=== PATIENT | male | born 1985 | race Asian ===

== ENCOUNTER 2016-10-17 12:28 | Emergency (ER) | payer SELFPAY ==
[~2016-10-17] VITALS: Ht 172.7 cm; Wt 66.6 kg
--- NOTE | 2016-10-17 12:44 | NUR ---
HANDOFF COMMUNICATION To Tanna SHEEHAN and Providers
[2016-10-17] MEDS ORDERED: DIPH25CA6 PO (12:48)
--- NOTE | 2016-10-17 12:54 | ERPDOC ---
Departure Disposition Decision Date: October 17, 2016 Disposition Decision Time: 15:47 (MARTIN PARKER APRN) Disposition: 01 DISCHARGED HOME, SELF-CARE Impression Impression (MARTIN PARKER APRN) Impression: Primary Impression: Contact dermatitis Contact dermatitis type: unspecified Severity: Moderate (MARTIN PARKER APRN) Condition: Improved Seen By: Mid-level only (MARTIN PARKER APRN) Patient Instructions: Contact Dermatitis (ED) Problems/Meds/Labs Reviewed?: Yes Medications reviewed and manag: Yes (MARTIN PARKER APRN) Additional Instructions: Your symptoms and exam findings are consistent with a contact dermatitis. You need to find out if there as been any change in detergents or chemical you use at work. You need to take Ranidine 150mg twice daily for 7 days. You may take loratadine 10mg daily for 7 days. Follow with your PCP if symptoms are not improving or worsening. Follow up care ordered?: Yes Mental Status: Alert, Oriented (MARTIN PARKER APRN) HPI - Skin General General Chief Complaint: Allergic Reaction Stated Complaint: ALLERGIC REACTION Time Seen by Provider: 12:53 Source: patient, yard stocker (Mike) Exam Limitations: language barrier (MARTIN PARKER APRN) Time Seen by Provider: 12:53 (OCTOBERMAX DO) HPI - Skin General Initial Comments 31 YO M presents to ED with "itchy" red rash that started 3 days ago. Patient says that rash started out on his eyelids then his face, has spread to his neck and bilateral arms. Patient denies fever, chills, new soaps/detergents/ lotions, new medications, new foods, SOA or swelling of mucus membranes or lips. Patient took Benadryl 25mg prior to arrival. Location: face, hands, extremities Associated Symptoms: rash, DENIES: fever (MARTIN PARKER APRN) Allergies: Coded Allergies: No Known Allergies (Unverified , 10/19/16) Past History Past Medical History Pt denies signifigant PMH (MARTIN PARKER APRN) Surgical History Denies Surgeries (MARTIN PARKER APRN) Family History Family PMH: FOUND: other (noncontributory) (MARTIN PARKER APRN) Social History Current Occupational Status: employed (MARTIN PARKER APRN) Review of Systems Constitutional Constitutional: DENIES: chills, dizziness, fever, weakness (PARKER,MARTIN A EARTH MOVING TECHNICIAN) Eyes General: DENIES: erythema, exudate Lids/Accessories: DENIES: erythema, swelling (PARKER,MARTIN A EARTH MOVING TECHNICIAN) ENMT Ears: DENIES: pain Sinuses: DENIES: congestion, rhinorrhea Mouth/Throat: DENIES: sore throat (PARKER,MARTIN A EARTH MOVING TECHNICIAN) Cardiovascular Cardiac: DENIES: chest pain, murmur Rhythm/Rate: DENIES: palpitations (PARKER,MARTIN A EARTH MOVING TECHNICIAN) Pulmonary Respiratory: DENIES: cough, dyspnea (PARKER,MARTIN A EARTH MOVING TECHNICIAN) GI Upper Abdomen: DENIES: nausea, pain, vomiting Lower Abdomen: DENIES: diarrhea, pain (PARKER,MARTIN A EARTH MOVING TECHNICIAN) General: DENIES: dysuria, pain (PARKER,MARTIN A EARTH MOVING TECHNICIAN) Musculoskeletal General: DENIES: joint pain, pain, tenderness (PARKER,MARTIN A EARTH MOVING TECHNICIAN) Integumentary Skin: itching, rash, see HPI (PARKER,MARTIN A EARTH MOVING TECHNICIAN) Neurological General: DENIES: ataxia, change in strength, numbness, paralysis/paresis, weakness (PARKER,MARTIN A EARTH MOVING TECHNICIAN) Psychiatric Psychiatric: DENIES: anxiety, depression, nervousness (PARKER,MARTIN A EARTH MOVING TECHNICIAN) Physical Exam General General Nourishment: well nourished, well developed, adult General Body Habitus: well groomed (PARKER,MARTIN A EARTH MOVING TECHNICIAN) Vitals and Pain Weight: Kilograms: 66.600 Height (feet): 5 Height (inches): 8.00 Triage Pain Scale: (PARKER,MARTIN A EARTH MOVING TECHNICIAN) Eyes (brief) Eyes Brief: found: EOMI (PARKER,MARTIN A EARTH MOVING TECHNICIAN) ENMT (brief) ENMT Brief: NOT FOUND: mucosa moist, nasal exudate, nasal swelling, pharnyx erythema (PARKER,MARTIN A EARTH MOVING TECHNICIAN) Neck (brief) Neck: FOUND: trachea midline, NOT FOUND: adenopathy, tenderness, thyromegaly ( PARKER,MARTIN A EARTH MOVING TECHNICIAN) Respiratory (brief) Respiratory: FOUND: clear all ayala, equal bilaterally, symmetrical (PARKER, MARTIN A EARTH MOVING TECHNICIAN) Cardiovascular (brief) Cardiac: FOUND: regular rate, regular rhythm (PARKER,MARTIN A EARTH MOVING TECHNICIAN) Musculoskeletal (brief) Musculoskeletal Brief: NOT FOUND: deformity, loss of motion (MARTIN PARKER EARTH MOVING TECHNICIAN) Integumentary General: FOUND: dry, warm Rash: FOUND: other (see below) Comments Confluent, diffuse erythematous papules on face, neck, bilateral hands, fingers , forearms and distal arms with excoriated areas on face and forearms. (MARTIN PARKER EARTH MOVING TECHNICIAN) Neurologic (brief) Neurological Brief: FOUND: motor-no gross deficits, sensory-no gross deficits ( MARTIN PARKER APRN) Psychiatric (brief) Psychiatric Brief: FOUND: alert, normal affect, oriented (MARTIN PARKER EARTH MOVING TECHNICIAN ) Differential Diagnoses Considering: Cellulitis, Contact Dermatitis, Hives/Urticaria, Viral Exanthem (MARTIN PARKER APRN) Progress Results/Orders Orders Procedure Category Date Status Time Methylprednisolone PHA 10/17/16 Complete Sod Succ (Solu-Medrol 13:15 Iv Lock (Ed Only) EDM 10/17/16 Transmitted 13:03 Normal Saline (Ns) PHA 10/17/16 Complete W/Ranitidine 14:15 Cbc W/Auto LAB 10/17/16 Complete Diff-Reflex Manual Bmp - Basic Metabolic LAB 10/17/16 Complete Panel Famotidine (Pepcid 20 PHA 10/17/16 Complete Mg Inj.) 15:00 (OCTOBER,MAX M DO) Lab Results Laboratory Tests Test 10/17/16 15:01 White Blood Count 5.0T/MM3 Red Blood Count 5.82M/MM3 Hemoglobin 16.9GM/DL Hematocrit 49.7% Mean Corpuscular Volume 85.4UM3 Mean Corpuscular Hemoglobin 29.0UUG Mean Corpuscular Hemoglobin Concent 34.0GM/DL RDW Standard Deviation 37.5FL Platelet Count 232T/MM3 Mean Platelet Volume 9.7UM3 Immature Granulocyte % (Auto) 0.0% Neutrophils (%) (Auto) 64.6% Lymphocytes (%) (Auto) 21.4% Monocytes (%) (Auto) 4.2% Eosinophils (%) (Auto) 9.4% Basophils (%) (Auto) 0.4% Absolute Immature Granulocyte (auto 0.00T/MM3 Absolute Neutrophils (auto) 3.2T/MM3 Absolute Lymphocytes (auto) 1.1T/MM3 Absolute Monocytes (auto) 0.2T/MM3 Absolute Eosinophils (auto) 0.5T/MM3 Absolute Basophils (auto) 0.0T/MM3 Turbidity < 20 Sodium Level 144MEQ/L Potassium Level 4.0MEQ/L Chloride Level 103MEQ/L Carbon Dioxide Level 28MEQ/L Anion Gap 13MEQ/L Blood Urea Nitrogen 9.0MG/DL Creatinine 1.0MG/DL Glomerular Filtration Rate Calc 88 BUN/Creatinine Ratio 9RATIO Glucose Level 125MG/DL Calculated Osmolality 277MOSM/KG Calcium Level 9.7MG/DL Icterus Index < 2 Chemistry Specimen Hemolysis < 15 ( Javier ) Medications Current ED Medications Methylprednisolone Sodium Succinate 125 mg 125 mg O ONCE IV Last administered on 10/17/16 13:42; Start 10/17/16 at 13:15; Stop 10/17/16 at 13:16; Status DC Ranitidine HCl 150 mg/Sodium Chloride 256 ml @ 10.7 mls/hr [id number] IV ; Start 10/17/16 at 14:15; Stop 10/17/16 at 14:59; Status DC Famotidine/Sodium Chloride (PEPCID 20 mg INJ./NS) 52 ml @ 100 mls/hr O ONCE IV Last administered on 10/17/16 15:02; Start 10/17/16 at 15:00; Stop 10/17/16 at 15:31; Status DC (OCTOBER,MAX Herrera ) Progress Progress Patient has had no change/improve of rash/symptoms after solu-medrol IV for 45 minutes. Patient has marked improvement of rash (decreased, rash and redness) after pepcid IV. Patient says his rash is no longer itching. CBC unremarkable I discussed patient's HPI, PMH, CBC, exam findings and response to tx. with Dr. Ma. Dr. Ma did not feel patient needed Rx. for prednisone since Solu-Medrol should last 5 days. Rash is consistent with a contact dermatitis (rash only on exposed skin, no under clothing) which was discussed with patient and possible causes in detail. I discussed treatment plan, use of medication, close follow up with PCP and return precautions with patient who verbalized understanding. (MARTIN PARKER APRN) MARTIN PARKER APRN October 17, 2016 12:54 OCTOBERMAX DO October 22, 2016 07:41
--- NOTE | 2016-10-17 12:54 | NUR ---
PROVIDER Josep PARKER APRN AT BEDSIDE FOR EXAM.
--- NOTE | 2016-10-17 14:05 | NUR ---
STATUS REDNESS APPEARS TO BE IMPROVING AFTER SOLU MEDROL ADM. PT POINTS TO ARMS, AND REPORTS THAT THE RASH IS STILL PRESENT. THIS RN ATTEMPTED TO EXPLAIN TO PT RASH IS NOT GOING TO IMMEDIATELY GO AWAY. REPORTS ITCHINESS CONTINUED.
[2016-10-17] MEDS ORDERED: RANITIDINE IV SCH (14:15)
[2016-10-17] MEDS ORDERED: NORMAL SALINE IV SCH (14:15)
--- NOTE | 2016-10-17 14:42 | NUR ---
MEDICATION CALLED FOR RANITIDINE FROM PHARMACY.
[2016-10-17] MEDS ORDERED: FAMOTIDINE 20 MG in NORMAL SALINE 50 ML IV ONE (15:00)
[2016-10-17 15:07] LABS: BASOPHILS % (AUTO) 0.4 % (0-2); EOSINOPHILS # (AUTO) 0.5 T/MM3 (0-0.5); EOSINOPHILS % (AUTO) 9.4 % (0-4); HCT - HEMATOCRIT 49.7 % (41-53); HGB - HEMOGLOBIN 16.9 GM/DL (13.5-17.5); LYMPHOCYTES # (AUTO) 1.1 T/MM3 (1-4.8); LYMPHOCYTES % (AUTO) 21.4 % (23-45); MEAN CORPUSCULAR VOLUME 85.4 UM3 (80-100); MEAN PLATELET VOLUME 9.7 UM3 (9.4-12.4); MONOCYTES # (AUTO) 0.2 T/MM3 (0-0.8); MONOCYTES % (AUTO) 4.2 % (0-9.0); NEUTROPHILS #(AUTO)-ABSOLUTE 3.2 T/MM3 (1.8-7.7); NEUTROPHILS % (AUTO) 64.6 % (33-66); RED BLOOD COUNT 5.82 M/MM3 (4.50-5.90)
[2016-10-17 15:18] LABS: ANION GAP 13 MEQ/L (5-15); BUN/CREATININE RATIO 9 RATIO (6-26); CALCIUM 9.7 MG/DL (8.4-10.2); CHLORIDE 103 MEQ/L (98-107); CO2 - CARBON DIOXIDE 28 MEQ/L (22-30); GLOMERULAR FILTRATION RATE 88; GLUCOSE 125 MG/DL (75-110); SODIUM 144 MEQ/L (134-144)
--- NOTE | 2016-10-17 15:32 | NUR ---
STATUS PT RESTING COMFORTABLY IN CART. DENIES NEEDS AT THIS TIME. PT STATES "IT FEELS COOLER NOW." REDNESS TO RASH IMPROVED.
--- NOTE | 2016-10-17 16:06 | NUR ---
PROVIDER Josep PARKER APRN AT BEDSIDE TO SPEAK WITH PT.
[2016-10-17 17:02] VITALS: BP 127/77; PULSE 82; RESP 18; TEMP 98.9; O2SAT 99
--- NOTE | 2016-10-17 17:02 | NUR ---
DISCHARGE WRITTEN INSTRUCTIONS REVIEWED AND SENT WITH PT. PT VERBALIZES UNDERSTANDING OF DI, QUESTIONS REGARDING OTC MEDICATIONS ANSWERED. DIFFUSE PAPULAR RASH TO BILAT UPPER EXTREM, NECK, AND FACE STILL PRESENT; HOWEVER, HAS IMPROVED. REDNESS DECREASED, AND PT REPORTS NOT ITCHY. PT AMBULATES OUT OF ER WITH STEADY GAIT AT THIS TIME.
== END 2016-10-17 17:02 | disposition home or self-care (01) ==
LOC: ED 12:28
DX: L25.9 Unspecified contact dermatitis, unspecified cause (principal)
CPT/HCPCS: 36415; 80048; 85025

== ENCOUNTER 2016-10-19 14:23 | Emergency (ER) | payer SELFPAY ==
[~2016-10-19] VITALS: Ht 172.7 cm; Wt 66.0 kg
[~2016-10-19 14:23] MED LIST: DIPH25CA6 PO
[2016-10-19 14:25] VITALS: Ht 172.7 cm; Wt 66.0 kg
--- OUTSIDE RECORDS SUMMARY | 2016-10-19 14:27 | XMS REPORT | Continuity of Care Document ---
Author Author [facility] Organization [facility] Address Unknown Phone Unavailable Support Name Relationship Address Phone MAX PAUL DO Caregiver [address] [address] Unavailable Insurance Providers Guarantor Dustin Rangel Address [address] [place] [address] Email DENIED 16 Payer Self Pay Subscriber's Name Dustin Rangel Relationship 18 Self Advance Directives Directive Response Recorded Date/Time Advanced Directives Type None 10/17/16 12:45pm Chief Complaint and Reason for Visit Chief Complaint Allergic Reaction Reason for Visit Contact dermatitis Problems Active Problems Medical Problem Onset Date Status Contact dermatitis Unknown Acute Rash and nonspecific skin eruption Unknown Acute Medications Current Home Medications Medication Dose Units Route Directions Days Qty Instructions Start Date Diphenhydramine Hcl 25 Mg Capsule 1 Cap Oral Every 4 Hours Social History Social History Problem Response Recorded Date/Time Onset Date Status Chewing Tobacco Status No 10/17/2016 1:20pm Not Applicable Not Applicable Hx Substance Use No 10/17/2016 1:20pm Not Applicable Not Applicable Hx Alcohol Use No 10/17/2016 1:20pm Not Applicable Not Applicable Query Response Start Date Stop Date Smoking Status Never smoker Hospital Discharge Instructions No hospital discharge instructions. Plan of Care Discharge Date 10/17/16 5:02pm Disposition 01 DISCHARGED HOME, SELF-CARE Condition at Discharge Improved Instructions/Education Provided Contact Dermatitis (ED) Prescriptions See Medication Section Additional Instructions/Education Your symptoms and exam findings are consistent with a contact dermatitis. You need to find out if there as been any change in detergents or chemical you use at work. You need to take Ranidine 150mg twice daily for 7 days. You may take loratadine 10mg daily for 7 days. Follow with your PCP if symptoms are not improving or worsening. Care Plan and Goals Physician Care Plan Problem: Contact Dermatitis Goal: Follow up with primary care provider Instructions: Take medications and follow care plan as discussed/written Functional Status No functional status results. Allergies, Adverse Reactions, Alerts No known allergies. Immunizations No immunization records. Vital Signs Acute Vital Signs Vital Response Date/Time Temperature (Fahrenheit) 98.9 deg F (96.8 - 99.1) 10/17/2016 5:02pm Temperature (Calculated Celsius) 37.45121 degrees C (36.0 - 37.3) 10/17/2016 5:02pm Pulse Rate (adult) 82 bpm (60 - 100) 10/17/2016 5:02pm Respiratory Rate 18 breaths/min (10 - 20) 10/17/2016 5:02pm O2 Sat by Pulse Oximetry 99 % (90 - 100) 10/17/2016 5:02pm Blood Pressure 127/77 mm Hg 10/17/2016 5:02pm Height (Feet) 5 feet 10/17/2016 12:36pm Height (Inches) 8.00 inches 10/17/2016 12:36pm Weight (Kilograms) 66.600 kg 10/17/2016 12:36pm Height 5 ft 8 in 10/17/2016 12:36pm Weight 146.83 lb 10/17/2016 12:36pm Body Mass Index 22.0 kg/m^2 10/17/2016 12:36pm Results Laboratory Results Test Name Result Units Flags Reference Collection Date/Time Result Date/ Time Comments White Blood Count 5.0 T/MM3 4.5-11.0 10/17/2016 3:01pm 10/17/2016 3: 07pm Red Blood Count 5.82 M/MM3 4.50-5.90 10/17/2016 3:01pm 10/17/2016 3: 07pm Hemoglobin 16.9 GM/DL 13.5-17.5 10/17/2016 3:01pm 10/17/2016 3:07pm Hematocrit 49.7 % 41-53 10/17/2016 3:01pm 10/17/2016 3:07pm Mean Corpuscular Volume 85.4 UM3 80-100 10/17/2016 3:01pm 10/17/2016 3: 07pm Mean Corpuscular Hemoglobin 29.0 UUG 26-34 10/17/2016 3:01pm 2016 3:07pm Mean Corpuscular Hemoglobin Concent 34.0 GM/DL 31-37 10/17/2016 3:01pm 10/17/2016 3:07pm RDW Standard Deviation 37.5 FL 36.9-50.2 10/17/2016 3:01pm 10/17/2016 3 :07pm Platelet Count 232 T/MM3 130-400 10/17/2016 3:01pm 10/17/2016 3:07pm Mean Platelet Volume 9.7 UM3 9.4-12.4 10/17/2016 3:01pm 10/17/2016 3: 07pm Neutrophils (%) (Auto) 64.6 % 33-66 10/17/2016 3:01pm 10/17/2016 3: 07pm Lymphocytes (%) (Auto) 21.4 % L 23-45 10/17/2016 3:01pm 10/17/2016 3: 07pm Monocytes (%) (Auto) 4.2 % 0-9.0 10/17/2016 3:01pm 10/17/2016 3:07pm Eosinophils (%) (Auto) 9.4 % H 0-4 10/17/2016 3:01pm 10/17/2016 3:07pm Basophils (%) (Auto) 0.4 % 0-2 10/17/2016 3:01pm 10/17/2016 3:07pm Immature Granulocyte % (Auto) 0.0 % 0.0-0.5 10/17/2016 3:01pm 2016 3:07pm Absolute Neutrophils (auto) 3.2 T/MM3 1.8-7.7 10/17/2016 3:01pm 2016 3:07pm Absolute Lymphocytes (auto) 1.1 T/MM3 1-4.8 10/17/2016 3:01pm 2016 3:07pm Absolute Monocytes (auto) 0.2 T/MM3 0-0.8 10/17/2016 3:01pm 10/17/2016 3:07pm Absolute Eosinophils (auto) 0.5 T/MM3 0-0.5 10/17/2016 3:01pm 2016 3:07pm Absolute Basophils (auto) 0.0 T/MM3 0-0.2 10/17/2016 3:01pm 10/17/2016 3:07pm Absolute Immature Granulocyte (auto 0.00 T/MM3 0.00-0.03 10/17/2016 3: 01pm 10/17/2016 3:07pm Icterus Index < 2 0-7 10/17/2016 3:01pm 10/17/2016 3:18pm Chemistry Specimen Hemolysis < 15 0-25 10/17/2016 3:01pm 10/17/2016 3 :18pm 0-25: Specimen Exhibited No Hemolysis. Turbidity < 20 0-20 10/17/2016 3:01pm 10/17/2016 3:18pm Sodium Level 144 MEQ/L 134-144 10/17/2016 3:01pm 10/17/2016 3:18pm Potassium Level 4.0 MEQ/L 3.6-5 10/17/2016 3:01pm 10/17/2016 3:18pm Chloride Level 103 MEQ/L 98-107 10/17/2016 3:01pm 10/17/2016 3:18pm Carbon Dioxide Level 28 MEQ/L 22-30 10/17/2016 3:01pm 10/17/2016 3: 18pm Anion Gap 13 MEQ/L 5-15 10/17/2016 3:01pm 10/17/2016 3:18pm Blood Urea Nitrogen 9.0 MG/DL 9-20 10/17/2016 3:01pm 10/17/2016 3:18pm Creatinine 1.0 MG/DL 0.8-1.5 10/17/2016 3:01pm 10/17/2016 3:18pm BUN/Creatinine Ratio 9 RATIO 6-26 10/17/2016 3:01pm 10/17/2016 3:18pm Glomerular Filtration Rate Calc 88 10/17/2016 3:01pm 10/17/2016 3: 18pm Glucose Level 125 MG/DL H 75-110 10/17/2016 3:01pm 10/17/2016 3:18pm Calculated Osmolality 277 MOSM/KG 261-280 10/17/2016 3:01pm 10/17/2016 3:18pm Calcium Level 9.7 MG/DL 8.4-10.2 10/17/2016 3:01pm 10/17/2016 3:18pm Procedures No known history of procedures. Encounters Encounter Location Arrival/Admit Date Discharge/Depart Date Attending Provider Departed Emergency Room [facility] 10/17/16 12:28pm 10/17/16 5: 02pm MAX PAUL DO Recent Diagnosis
--- NOTE | 2016-10-19 14:41 | ERPDOC ---
Departure Disposition Decision Date: October 19, 2016 Disposition Decision Time: 16:10 Disposition: 01 DISCHARGED HOME, SELF-CARE Impression Impression Impression: Primary Impression: Contact dermatitis Contact dermatitis type: irritant Contact dermatitis trigger: unspecified trigger Qualified Codes: L24.9 - Irritant contact dermatitis, unspecified cause Severity: Moderate Condition: Stable Seen By: Physician only Referrals: [facility] Patient Instructions: Acute Rash (ED) Problems/Meds/Labs Reviewed?: Yes Medications reviewed and manag: Yes Additional Instructions: Stop diphenhydramine (Benadryl) and stop loratadine. Take the Vistaril 4 times a day this will replace the above medications. Continue to take the ranitidine as directed Take the prednisone taper as directed. You have been provided a small amount of tramadol for pain, you may use that as needed for pain. You need to establish yourself with a primary medical physician for follow-up if this is not improving Follow up care ordered?: Yes Mental Status: Alert, Oriented Scripts Tramadol HCl (Tramadol HCl) 50 Mg Tablet 1-2 TAB PO Q6H Y for PAIN, #20 TAB Prov: CATHERINE MOTA MD 10/19/16 Hydroxyzine Pamoate (Vistaril) 50 Mg Capsule 1 CAP PO QID for 5 Days, #20 CAP Prov: CATHERINE MOTA MD 10/19/16 Prednisone (Prednisone) 20 Mg Tablet 0 PO as directed, #33 TAB Take 3 tablets once a day for 5 days, then Take 2 tablets once a day for 5 days, then Take 1 tablet once a day for 5 days, then Take 1/2 tablet once a day for 6 days, then Stop Prov: CATHERINE MOTA MD 10/19/16 HPI - Chest Pain General Chief Complaint: Allergic Reaction Stated Complaint: ALLERGIC REACTION Time Seen by Provider: 14:31 Source: patient Exam Limitations: no limitations HPI - Chest Pain Initial Comments Patient is a 31-year-old male, presents for the ER for evaluation of rash on face and arms. Patient was seen 3 days prior to this in the emergency department for similar symptoms. Patient was given Solu-Medrol start started on loratadine and ranitidine at home. Patient states rash improved for about a day and has become significantly worse. Patient having continued itching, no fevers no chills is now having swelling of the face. Patient decided to re- presented to the ER, did not seek other medical attention is instructed Aspirin Treatment Today: contraindicated Allergies: Coded Allergies: No Known Allergies (Unverified , 10/19/16) Past History Past Medical History Pt denies signifigant PMH Surgical History Denies Surgeries Family History Family PMH: FOUND: other Social History Current Occupational Status: employed Review of Systems Constitutional Constitutional: DENIES: appetite decrease, chills, dizziness, fever, weakness Eyes Vision: DENIES: blurring, double vision, loss of visual ayala ENMT Mouth/Throat: DENIES: scratchy throat, sore throat Cardiovascular Cardiac: DENIES: chest pain, dyspnea on exertion Pulmonary Respiratory: DENIES: cough, dyspnea, sputum, tachypnea GI Upper Abdomen: DENIES: nausea, pain, vomiting Lower Abdomen: DENIES: constipation, diarrhea, pain Musculoskeletal General: DENIES: cramps, pain, weakness Integumentary Skin: itching, rash Neurological General: DENIES: headache, numbness, weakness Endocrine Endocrine: DENIES: heat/cold intolerance Hematologic/Lymphatic Hematologic/Lymphatic: DENIES: anemia Physical Exam General General Nourishment: well nourished, well developed General Body Habitus: well groomed Vitals and Pain First Documented Vital Signs Date Time Temp Pulse Resp B/P Pulse Ox O2 Delivery O2 Flow Rate FiO2 10/19/16 14:25 98.4 89 16 135/75 98 Room Air Weight: Kilograms: Height (feet): 5 Height (inches): 8.00 Triage Pain Scale: RN VS reviewed by Provider: Yes Eyes (brief) Eyes Brief: found: EOMI, PERRL ENMT (brief) ENMT Brief: FOUND: TM clear, TM good light reflex, ear canals clear, mucosa moist, normal dentition, NOT FOUND: nasal erythema, nasal exudate, nasal swelling, pharnyx erythema, tonsillar deviation Neck (brief) Neck: NOT FOUND: adenopathy, spasm, tenderness Respiratory (brief) Respiratory: FOUND: clear all ayala, equal bilaterally, NOT FOUND: rales, wheezes Cardiovascular (brief) Cardiac: FOUND: regular rate, regular rhythm Capillary Refill: <2 sec Abdomen (brief) Abdominal Brief: FOUND: bowel normo active x4, soft, NOT FOUND: distended, tender Lymphatic (brief) Lymphatic Brief: NOT FOUND: adenopathy Musculoskeletal (brief) Musculoskeletal Brief: NOT FOUND: spasm, tenderness Integumentary (brief) Integumentary Brief: FOUND: dry, pink, rash (patient has a maculopapular rash with raised areas almost confluent on upper extremities up until the T-shirt line, then has rash on face going down neck to the T-shirt line consistent with some sort of a contact dermatitis on exposed skin) Neurologic (brief) Neurological Brief: FOUND: CN w/o gross def to obs, motor-no gross deficits, sensory-no gross deficits Psychiatric (brief) Psychiatric Brief: FOUND: alert, oriented Differential Diagnoses Considering: Other (contact dermatitis) Progress Results/Orders Orders Lab Results Medications Current ED Medications Methylprednisolone Sodium Succinate (Solu-Medrol) 125 mg O ONCE IM Last administered on 10/19/16 15:05; Start 10/19/16 at 15:00; Stop 10/19/16 at 15:01; Status DC Ketorolac Tromethamine (Toradol) 60 mg O ONCE IM Last administered on 15:06; Start 10/19/16 at 15:00; Stop 10/19/16 at 15:01; Status DC Progress Progress Patient given Solu-Medrol and Toradol in the emergency department, will switch from loratadine to Vistaril, will provide long prednisone taper continue ranitidine, small amount of tramadol for pain. Patient needs to follow-up with primary medical physician, referred to [facility], or herbarium worker for further evaluation. Patient shows no signs or symptoms of airway compromise CATHERINE MOTA MD October 19, 2016 14:41 Medications Current ED Medications Methylprednisolone Sodium Succinate (Solu-Medrol) 125 mg O ONCE IM Last administered on 10/19/16 15:05; Start 10/19/16 at 15:00; Stop 10/19/16 at 15:01; Status DC Ketorolac Tromethamine (Toradol) 60 mg O ONCE IM Last administered on 15:06; Start 10/19/16 at 15:00; Stop 10/19/16 at 15:01; Status DC CATHERINE MOTA MD October 19, 2016 14:41 CATHERINE MOTA MD October 19, 2016 14:41
--- NOTE | 2016-10-19 14:43 | NUR ---
PROVIDER DR MOTA IN TO SEE PATIENT.
[2016-10-19] MEDS ORDERED: KETOROLAC 60mg/2ml INJECTION IM ONE (15:00)
[2016-10-19] MEDS ORDERED: RANI150T7 PO (15:10)
[2016-10-19] MEDS ORDERED: LORA10TA7 PO (15:10)
--- NOTE | 2016-10-19 15:12 | NUR ---
LAB NOTIFIED OF NEW ORDERS.
--- NOTE | 2016-10-19 15:24 | NUR ---
SENIOR POLICY ASSOCIATE IN ROOM TO DRAW LAB.
[2016-10-19 15:40] LABS: BASOPHILS % (AUTO) 0.4 % (0-2); EOSINOPHILS # (AUTO) 0.5 T/MM3 (0-0.5); EOSINOPHILS % (AUTO) 9.9 % (0-4); HCT - HEMATOCRIT 45.9 % (41-53); HGB - HEMOGLOBIN 15.4 GM/DL (13.5-17.5); LYMPHOCYTES # (AUTO) 1.5 T/MM3 (1-4.8); LYMPHOCYTES % (AUTO) 29.3 % (23-45); MEAN CORPUSCULAR HGB 28.9 UUG (26-34); MEAN CORPUSCULAR HGB CONC(MCHC 33.6 GM/DL (31-37); MEAN CORPUSCULAR VOLUME 86.3 UM3 (80-100); MONOCYTES # (AUTO) 0.3 T/MM3 (0-0.8); MONOCYTES % (AUTO) 5.7 % (0-9.0); NEUTROPHILS #(AUTO)-ABSOLUTE 2.9 T/MM3 (1.8-7.7); NEUTROPHILS % (AUTO) 54.7 % (33-66); RED BLOOD COUNT 5.32 M/MM3 (4.50-5.90); WBC - WHITE BLOOD COUNT 5.3 T/MM3 (4.5-11.0)
[2016-10-19 15:50] LABS: ANION GAP 15 MEQ/L (5-15); BUN/CREATININE RATIO 13 RATIO (6-26); C-REACTIVE PROTEIN < 5.0 MG/L (0-9); CALCIUM 9.2 MG/DL (8.4-10.2); CHLORIDE 102 MEQ/L (98-107); CO2 - CARBON DIOXIDE 28 MEQ/L (22-30); CREATININE 0.9 MG/DL (0.8-1.5); GLOMERULAR FILTRATION RATE 99; GLUCOSE 95 MG/DL (75-110); POTASSIUM 3.7 MEQ/L (3.6-5); SODIUM 145 MEQ/L (134-144)
[2016-10-19] MEDS ORDERED: TRAM50TA4 PO (16:14)
[2016-10-19] MEDS ORDERED: PRED20TA PO (16:14)
[2016-10-19] MEDS ORDERED: HYDR50CA PO (16:14)
--- NOTE | 2016-10-19 16:14 | NUR ---
STATUS PATIENT IS RESTING IN BED WITH NO COMPLAINTS OTHER THAN ITCHING OF RASH.
[2016-10-19 16:38] VITALS: BP 117/75; PULSE 76; RESP 17; TEMP 98.4; O2SAT 96
== END 2016-10-19 16:38 | disposition home or self-care (01) ==
LOC: ED 14:23
DX: L24.9 Irritant contact dermatitis, unspecified cause (principal)
CPT/HCPCS: 36415; 80048; 85025; 86140